=== PATIENT | male | born 1965 | race Caucasian/White ===

== ENCOUNTER 2022-12-31 14:58 | Inpatient (IN) ==
[2022-12-31 15:46] LABS: Basophils # (auto) 0.03 K/uL (0.00-0.20); Basophils % (auto) 0.3 %; Eosinophils # (auto) 0.04 K/uL (0.00-0.50); Eosinophils % (auto) 0.4 %; Hematocrit (blood only) 46.6 % (42.0-52.0); Immature Granulocytes # (auto) 0.04 K/uL (0.01-0.20); Immature Granulocytes % (auto) 0.4 %; Lymphocytes # (auto) 1.88 K/uL (1.20-3.40); Mean Corpuscular Hemoglobin 31.3 pg (25.0-34.0); Mean Corpuscular Hgb Conc 34.3 g/dL (32.0-36.0); Monocytes # (auto) 1.29 K/uL (0.11-0.59); Monocytes % (auto) 13.1 %; Neutrophils # (auto) 6.59 K/uL (1.40-6.50); Neutrophils % (auto) 66.8 %; Platelet Count 199 K/uL (130-400); RDW Coefficient of Variation 12.9 % (11.5-14.5); RDW Standard Deviation 43.5 fL (36.4-46.3); Red Blood Count 5.12 M/uL (4.70-6.10); White Blood Count 9.87 K/ul (4.8-10.8)
--- NOTE | 2022-12-31 15:46 | XRay Report ---
XR chest 1V not portable CLINICAL HISTORY: Chest pain, nonspecific TECHNIQUE: Single frontal radiograph of the chest was obtained. Comparison: None available at the time of this dictation. FINDINGS: No lines and tubes are seen. The cardiomediastinal silhouette is normal. Lungs are underinflated but clear. No evidence of pleural effusion or pneumothorax. IMPRESSION: No acute chest disease. ACT 112: Negative or not required by law. Electronically signed by: Robin Olsen M.D. 12/31/2022 3:45 PM
[2022-12-31 16:06] LABS: Albumin Globulin Ratio 1.3 (0.9-2); Albumin Level 4.3 gm/dl (3.4-5.0); BUN Creatinine Ratio 16.7 (10-20); Bilirubin,Total 0.9 mg/dl (0.2-1.0); Calcium 9.9 mg/dl (8.6-10.3); Creatinine Clr Calc Pharmacy 138.4 ml/min; Est GFR (Non-African American) 95.8 ml/min; Globulin 3.3 gm/dl (2.5-4.0); Potassium 4.1 mmol/L (3.5-5.1); Total Protein 7.6 gm/dl (6.0-8.3)
[2022-12-31 16:12] LABS: Troponin I High Sensitivity 5.2 pg/ml (0-20)
[2022-12-31 16:18] LABS: Partial Thromboplastin Time 28.7 Seconds (21.0-31.0); Prothrombin Time 11.4 Seconds (9.0-12.0)
--- NOTE | 2022-12-31 19:28 | Emergency Department Note ---
Impression & Plan Multiple pulmonary emboli, Back pain, Fall, Hemoptysis ED Provider Note ED Provider Note NAME: TOM SIMS AGE:57 SEX: Male : 1965 ARRIVES VIA: private vehicle INFORMANT: Patient ED PROVIDER(s): Margy Anne DO CHIEF COMPLAINT: back pain, fall 2 days ago HPI: This is a 57-year-old male presents emergency department due to concern for persistent back pain from a fall 2 days ago. Patient states he tripped over his dog falling forward into the wall and catching himself on the couch. He states later that evening he began feeling stiff and sore. He states yesterday he had pain all day in the left upper back that occasionally radiates forward into the chest. He states this persisted into today. He states his pain is worse with movement, coughing, and deep breathing. He states this morning he had an episode of hemoptysis. He did not notice any other changes or bleeding from any other source. He states throughout the day then he had a total of 4 episodes of hemoptysis. No use of antiplatelet or anticoagulation therapy. No recent fevers, chills, or URI symptoms. No prior history of hemoptysis. PAST MEDICAL HISTORY:See Below PAST SURGICAL HISTORY:See Below FAMILY HISTORY:See Below SOCIAL HISTORY:See Below HOME MEDICATIONS:See Below ALLERGIES:See Below VITALS:See Below PHYSICAL EXAMINATION: GENERAL: alert, well appearing, well nourished, no distress, non-toxic EYE EXAM: normal conjunctiva, PERRL and EOM's grossly intact OROPHARYNX: no exudate, no erythema, lips, buccal mucosa, and tongue normal and mucous membranes are moist NECK: supple, no nuchal rigidity, no adenopathy, non-tender LUNGS: Clear to auscultation. Normal chest wall mechanics, no w/r/r HEART: no murmurs, S1 normal and S2 normal ABDOMEN: abdomen soft, non-tender, normo-active bowel sounds, no masses, no rebound or guarding. BACK: Back is symmetrical on inspection and there is no deformity, no midline tenderness, no CVA tenderness. Pain with palpation over left lateral mid thoracic spine. SKIN: no rashes, petechiae, orbruising UPPER EXTREMITIES: upper extremities are grossly normal. FROM, nml pulses b/l. LOWER EXTREMITIES: No pitting edema. FROM, nml pulses b/l. Well-healed vertical midline incisions over bilateral knees consistent with prior surgery. NEURO EXAM: Normal sensorium, cranial nerves II-XII grossly intact, normal speech, no facial droop,nogross weakness of arms, no gross weakness of legs. Gross sensation intact. No ataxia. Vital Signs: reviewed and remarkable Differential Diagnosis: Pulmonary contusion, pneumonia, PE, rib fracture, chest wall contusion, pericardial effusion, bronchitis, epistaxis, musculoskeletal strain/sprain, as well as others were considered MEDICAL DECISION MAKING: This is a 57-year-old male presents emergency department due to concern for persistent left-sided back pain following a fall 2 days ago. Patient was afebrile and vital signs stable. Patient was seen initially in the triage waiting room area as he presented on the day of high volume and acuity. Labs were drawn and sent, IV established, EKG and chest x-ray performed and interpr eted by me. Patient taken for additional CT imaging following my evaluation of the triage waiting room area. Patient was eventually placed in a regular room and was monitored on telemetry. CT showed multiple bilateral PEs, no evidence of RV strain. While patient was hemodynamically stable he was noted to be tachypneic and dyspneic with any movement although not overtly hypoxic. I discussed all results with patient and family at bedside. He states his mother did have prior DVTs and a filter was placed. No known family history of a clotting disorder. He states he himself has never had DVT/PE. Patient started on heparin drip until additional evaluation and discussion with him could be had by the hospitalist team regarding other oral anticoagulation. Case discussed with on-call [facility] hospitalist for additional inpatient management. Consultation(s): 2044: Discussed with Dr. Castillo, [facility] hospitalist team. ER Treatment Provided: See below Diagnostics Interpreted By Me: -ECG: NSR at 73, nml axis, nml intervals, no acute ST/T wave changes -Cardiac Monitoring: An order was placed for continuous cardiac monitoring. The monitor shows a rate of 68 with normal sinus rhythm. -Laboratory studies: As stated above and show below. -Imaging studies: X-ray Chest: A single view study of the chest was reviewed and was negative for cardiomegaly, focal infiltrate, effusion, pulmonary edema, or wide mediastinum. Triage Nursing Note Reviewed Prior/Outside Records Reviewed -prior DC summary reviewed Critical Care: Critical care of 44 min performed to assess and manage high likelihood of life- threatening multiple bilateral PEs, involving labs and imaging performed with assessment to evaluate multiple bilateral PEs diagnosis with frequent reassessment. This time includes bedside time, treatment discussions with patient/family/consultants, documentation time and excludes procedure time. Past Med/Surg History Medical History Chronic back pain Degenerative disc disease GERD (gastroesophageal reflux disease) Osteoarthritis Sleep apnea CPAP HS Surgical History History of arthroscopy B/L KNEES History of colonoscopy History of esophagogastroduodenoscopy (EGD) History of lumbar spinal fusion x2 History of repair of rotator cuff RT SHOULDER History of tonsillectomy History of total knee replacement bilat Nausea and vomiting after administration of anesthetic agent HX OF PONV [place] teeth extracted Family History Mother Pulmonary embolism 2012, unknown etiology Hypertension Uncle Diabetes Social History Smoking Status: Never smoker Second Hand Exposure: No; Do You Dip or Chew Tobacco: No; Hx Alcohol Use: Yes Alcohol type: beer, wine and hard liquor Hx Substance Use: No Preferred Language: Bengali Communication Ability: Effective Visual Impairment: No Limitations Copy Center Operator Required: No Beliefs That Will Affect Care: None marital status: Current Living Situation: Spouse Feels Safe at Home: Yes Assistive Devices: Glasses Allergies Allergies Allergy/AdvReac Type Severity Reaction Status Date / Time adhesive Allergy Intermediate Rash Verified 12/31/22 20:53 ibuprofen Allergy Intermediate HIVES Verified 12/31/22 20:53 Home Meds Home Medications Medication Instructions Recorded Confirmed gabapentin 800 mg tablet 800 mg PO BID 06/01/18 12/31/22 omeprazole 40 mg capsule,delayed 20 mg PO BID 06/01/18 12/31/22 release naproxen 250 mg tablet 250 mg PO BID PRN Pain 12/31/22 12/31/22 tramadol 50 mg tablet 50 mg PO BID PRN Pain 12/31/22 12/31/22 Results & Data (ED) Vital Signs Vital Signs - 24 hr 12/31/22 14:59 12/31/22 20:10 12/31/22 20:10 Temperature 37.2 C Temperature Source Temporal Artery Scan Pulse Rate 84 Pulse Rate [Apical] 75 Pulse Rate from SpO2 Sensor Pulse Rhythm [Apical] Regular Pulse Strength [Apical] Normal Respiratory Rate 18 21 Respiratory Effort / Characteristics Non-Labored Non-Labored Respiratory Depth Normal Normal Respiratory Pattern Regular Blood Pressure 186/93 H Blood Pressure [Left Arm] 159/94 H Blood Pressure Mean 124 Blood Pressure Mean [Left Arm] 115 Blood Pressure Position Sitting Pulse Oximetry 93 96 95 Oxygen Delivery Method Room Air Room Air Room Air Sepsis Recent Fever Within 48 Hours No Sepsis New/Unexplained Change in Mental Status No Sepsis Action Taken by Nursing No Action Required 12/31/22 20:11 12/31/22 20:10 12/31/22 20:11 Temperature Temperature Source Pulse Rate 75 74 Pulse Rate [Apical] Pulse Rate from SpO2 Sensor 75 Pulse Rhythm [Apical] Pulse Strength [Apical] Respiratory Rate 16 Respiratory Effort / Characteristics Respiratory Depth Respiratory Pattern Blood Pressure Blood Pressure [Left Arm] Blood Pressure Mean Blood Pressure Mean [Left Arm] Blood Pressure Position Pulse Oximetry 96 95 Oxygen Delivery Method Room Air Sepsis Recent Fever Within 48 Hours Sepsis New/Unexplained Change in Mental Status Sepsis Action Taken by Nursing 12/31/22 20:30 12/31/22 21:00 12/31/22 21:02 Temperature Temperature Source Pulse Rate 54 L 66 66 Pulse Rate [Apical] Pulse Rate from SpO2 Sensor 54 L 67 67 Pulse Rhythm [Apical] Pulse Strength [Apical] Respiratory Rate 19 29 H 19 Respiratory Effort / Characteristics Respiratory Depth Respiratory Pattern Blood Pressure 100/65 142/60 H 164/89 H Blood Pressure [Left Arm] Blood Pressure Mean 76 87 114 Blood Pressure Mean [Left Arm] Blood Pressure Position Pulse Oximetry 97 93 96 Oxygen Delivery Method Room Air Room Air Room Air Sepsis Recent Fever Within 48 Hours Sepsis New/Unexplained Change in Mental Status Sepsis Action Taken by Nursing Laboratory Data 12/31/22 15:22 12/31/22 15:22 Lab Results 12/31/22 12/31/22 12/31/22 Range/Units 15:22 15:22 15:22 WBC 9.87 (4.8-10.8) K/ul RBC 5.12 (4.70-6.10) M/uL Hgb 16.0 (14.0-18.0) g/dl Hct 46.6 (42.0-52.0) % MCV 91.0 (80.0-100.0) fL MCH 31.3 (25.0-34.0) pg MCHC 34.3 (32.0-36.0) g/dL RDW Std Deviation 43.5 (36.4-46.3) fL RDW Coeff of Waldemar 12.9 (11.5-14.5) % Plt Count 199 (130-400) K/uL MPV 9.0 L (9.4-12.4) fL Immature Gran % (Auto) 0.4 % Neut % (Auto) 66.8 % Lymph % (Auto) 19.0 % Sully % (Auto) 13.1 % Eos % (Auto) 0.4 % Baso % (Auto) 0.3 % Neut # (Auto) 6.59 H (1.40-6.50) K/uL Lymph # (Auto) 1.88 (1.20-3.40) K/uL Sully # (Auto) 1.29 H (0.11-0.59) K/uL Eos # (Auto) 0.04 (0.00-0.50) K/uL Baso # (Auto) 0.03 (0.00-0.20) K/uL Immature Gran # (Auto) 0.04 (0.01-0.20) K/uL PT 11.4 (9.0-12.0) Seconds INR 1.0 (0.9-1.1) APTT 28.7 (21.0-31.0) Seconds PTT Ratio 1.0 Sodium 137 (136-145) mmol/L Potassium 4.1 (3.5-5.1) mmol/L Chloride 100 (98-107) mmol/L Carbon Dioxide 30 (21-32) mmol/L Anion Gap 7 (3-11) BUN 15 (6-23) mg/dl Creatinine 0.90 (0.6-1.4) mg/dl Est Cr Clr Drug Dosing 138.4 ml/min Est GFR ( Amer) 111.0 ml/min Est GFR (Non-Af Amer) 95.8 ml/min BUN/Creatinine Ratio 16.7 (10-20) Glucose 129 H (70-99(Fasting)) mg/dl Calcium 9.9 (8.6-10.3) mg/dl Total Bilirubin 0.9 (0.2-1.0) mg/dl AST 16 (13-39) U/L ALT 19 (7-52) U/L Alkaline Phosphatase 82 (34-104) U/L Troponin I High Sens 5.2 (0-20) pg/ml Total Protein 7.6 (6.0-8.3) gm/dl Albumin 4.3 (3.4-5.0) gm/dl Globulin 3.3 (2.5-4.0) gm/dl Albumin/Globulin Ratio 1.3 (0.9-2) Administered Medications Acetaminophen (Acetaminophen 325 Mg Tab) 650 mg PO Q4H PRN PRN Reason: Pain or Fever Stop: 01/30/23 22:39 Last Admin: 01/01/23 00:20 Dose: 650 mg Documented By: ALDAIR Gabapentin (Gabapentin 800 Mg Tab) 800 mg PO BID [facility] Stop: 01/30/23 22:39 Last Admin: 01/01/23 00:18 Dose: 800 mg Documented By: ALDAIR Heparin Sodium/Dextrose (Heparin Sodium/Dextrose) 25,000 units in 500 mls @ 38 mls/hr IV .[id number] [facility]; Protocol Stop: 01/30/23 20:44 Last Admin: 12/31/22 22:01 Dose: 1,900 units/hr, 38 mls/hr Documented By: ALDAIR Co-signed By: JUAN Pantoprazole Sodium (Pantoprazole 40 Mg Tab) 40 mg PO BID [facility] Stop: 01/30/23 22:39 Last Admin: 01/01/23 00:18 Dose: 40 mg Documented By: ALDAIR Discontinued Medications Heparin Sodium (Porcine) (Heparin Sod (Porcine) 1000 Unit/Ml) 8,000 units IV NOW ONE Stop: 12/31/22 21:16 Last Admin: 12/31/22 22:01 Dose: 8,000 units Documented By: ALDAIR Co-signed By: JUAN Heparin Sodium/Dextrose (Heparin Iv Adult Wt-Based Standard With Bolus Protocol) 1 each IV NOW [facility]; Protocol Stop: 12/31/22 20:28 Last Admin: 12/31/22 21:58 Dose: 1 each Documented By: ALDAIR Ioversol (Ioversol 350 Mg 125ml Prefilled Syringe) 119 ml IV ONCE ONE Stop: 12/31/22 19:38 Last Admin: 12/31/22 19:37 Dose: 119 ml Documented By: VÍCTOR Imaging Data Radiologist's Impression: Chest X-Ray 12/31/22 15:06 XR chest 1V not portable CLINICAL HISTORY: Chest pain, nonspecific TECHNIQUE: Single frontal radiograph of the chest was obtained. Comparison: None available at the time of this dictation. FINDINGS: No lines and tubes are seen. The cardiomediastinal silhouette is normal. Lungs are underinflated but clear. No evidence of pleural effusion or pneumothorax. IMPRESSION: No acute chest disease. ACT 112: Negative or not required by law. Electronically signed by: Robin Olsen M.D. 12/31/2022 3:45 PM Chest CTA 12/31/22 19:20 CR Exam(s): CTA CHEST IV Amt: 119 ml optiray 350 EXAM: CT Angiography Chest With Intravenous Contrast CLINICAL HISTORY: Reason for exam: hemoptysis. TECHNIQUE: Axial computed tomographic angiography images of the chest with intravenous contrast. CTDI is 28.14 mGy and DLP is 936.95 mGy-cm. Automated exposure control was utilized for the study. A dose lowering technique was utilized adhering to the principles of ALARA. MIP reconstructed images were created and reviewed. COMPARISON: No relevant prior studies available. FINDINGS: There is no thoracic aortic aneurysm or dissection. There is no adenopathy by CT size criteria. There is adequate pulmonary artery opacification. Main pulmonary artery is mildly enlarged suggesting pulmonary arterial hypertension. There are acute lobar, segmental, and subsegmental pulmonary emboli bilaterally, involving all lung lobes. No saddle embolus is present. Heart is enlarged. There is no RV strain or pericardial effusion. Subpleural ground-glass opacities at the left lung base are compatible with pulmonary infarcts. There is a small left pleural effusion. There is subsegmental atelectasis at the right lung base and in the dependent lingula. Lungs appear otherwise clear. There is no pneumothorax. There is no acute fracture or dislocation. IMPRESSION: 1. Extensive acute bilateral lobar, segmental, and subsegmental emboli involving all lung lobes. Slightly greater clot burden on the left side. No saddle embolus. No RV strain. 2. Pulmonary infarcts left lung base with small left pleural effusion. Communications: Call Doctor Pulmonary Embolism Electronically signed by: Rodger Pelaez M.D. 12/31/22 20:[address] 12/31/22 19:20 Exam(s): CT T SPINE IV Amt: 119 ml optiray 350 EXAM: CT Thoracic Spine With Intravenous Contrast CLINICAL HISTORY: Reason for exam: mid T spine back/left paraspinal. TECHNIQUE: Axial computed tomography images of the thoracic spine with intravenous contrast. CTDI is 28.14 mGy and DLP is 936.95 mGy-cm. Automated exposure control was utilized for the study. A dose lowering technique was utilized adhering to the principles of ALARA. CONTRAST: Patient received 119 ml optiray 350 of IV contrast COMPARISON: No relevant prior studies available. FINDINGS: Vertebrae: Vertebral body height and alignment are maintained. No acute fracture or traumatic subluxation. Discs/spinal canal/neural foramina: Mild multilevel degenerative disc disease. No spinal canal stenosis. Soft tissues: Unremarkable. Lungs: Subsegmental atelectasis right lung base. Small left pleural effusion with left basilar airspace disease, atelectasis or pneumonia. IMPRESSION: 1. No acute osseous findings. 2. Small left pleural effusion with left basilar airspace disease, atelectasis or pneumonia. Electronically signed by: Rodger Pelaez M.D. 12/31/22 20:03 PM Discharge Plan Visit Data Chief Complaint: Back Injury/Pain Stated Complaint: TRIPPED,BACK PAIN, ED Provider: Margy Anne Discharge Problem: Multiple pulmonary emboli, Back pain, Fall, Hemoptysis Patient Disposition: Admitted As Inpatient Discharge Instructions Interventions: ED Discharge Assessment Last Done: 12/31/22 22:41
[2022-12-31] MEDS ORDERED: IOVERSOL 350 MG 125mL Prefilled Syringe IV ONE (19:37)
--- NOTE | 2022-12-31 20:04 | CT Scan Report ---
Exam(s): CT T SPINE IV Amt: 119 ml optiray 350 EXAM: CT Thoracic Spine With Intravenous Contrast CLINICAL HISTORY: Reason for exam: mid T spine back/left paraspinal. TECHNIQUE: Axial computed tomography images of the thoracic spine with intravenous contrast. CTDI is 28.14 mGy and DLP is 936.95 mGy-cm. Automated exposure control was utilized for the study. A dose lowering technique was utilized adhering to the principles of ALARA. CONTRAST: Patient received 119 ml optiray 350 of IV contrast COMPARISON: No relevant prior studies available. FINDINGS: Vertebrae: Vertebral body height and alignment are maintained. No acute fracture or traumatic subluxation. Discs/spinal canal/neural foramina: Mild multilevel degenerative disc disease. No spinal canal stenosis. Soft tissues: Unremarkable. Lungs: Subsegmental atelectasis right lung base. Small left pleural effusion with left basilar airspace disease, atelectasis or pneumonia. IMPRESSION: 1. No acute osseous findings. 2. Small left pleural effusion with left basilar airspace disease, atelectasis or pneumonia. Electronically signed by: Rodger Pelaez M.D. 12/31/22 20:03 PM
--- NOTE | 2022-12-31 20:09 | CT Scan Report ---
Exam(s): CTA CHEST IV Amt: 119 ml optiray 350 EXAM: CT Angiography Chest With Intravenous Contrast CLINICAL HISTORY: Reason for exam: hemoptysis. TECHNIQUE: Axial computed tomographic angiography images of the chest with intravenous contrast. CTDI is 28.14 mGy and DLP is 936.95 mGy-cm. Automated exposure control was utilized for the study. A dose lowering technique was utilized adhering to the principles of ALARA. MIP reconstructed images were created and reviewed. COMPARISON: No relevant prior studies available. FINDINGS: There is no thoracic aortic aneurysm or dissection. There is no adenopathy by CT size criteria. There is adequate pulmonary artery opacification. Main pulmonary artery is mildly enlarged suggesting pulmonary arterial hypertension. There are acute lobar, segmental, and subsegmental pulmonary emboli bilaterally, involving all lung lobes. No saddle embolus is present. Heart is enlarged. There is no RV strain or pericardial effusion. Subpleural ground-glass opacities at the left lung base are compatible with pulmonary infarcts. There is a small left pleural effusion. There is subsegmental atelectasis at the right lung base and in the dependent lingula. Lungs appear otherwise clear. There is no pneumothorax. There is no acute fracture or dislocation. IMPRESSION: 1. Extensive acute bilateral lobar, segmental, and subsegmental emboli involving all lung lobes. Slightly greater clot burden on the left side. No saddle embolus. No RV strain. 2. Pulmonary infarcts left lung base with small left pleural effusion. Communications: Call Doctor Pulmonary Embolism Electronically signed by: Rodger Pelaez M.D. 12/31/22 20:08 PM
[2022-12-31] MEDS ORDERED: Heparin IV Adult Wt-Based Standard WITH Bolus Protocol IV STA (20:27)
[2022-12-31] MEDS ORDERED: HEPARIN SOD (PORCINE) 1000 UNIT/ML IV ONE ×2 (20:42→21:15)
--- NOTE | 2022-12-31 21:09 | History & Physical Report ---
Date of Service December 31, 2022 Assessment & Plan (1) Pulmonary emboli: Plan: -Pt presenting with progressive exertional dyspnea, fatigue and acute hemoptysis -Chest CT- extensive acute b/l lobar, segmental and subsegmental emboli of all lung lobes, greater clot burden on L side. Noted pulmonary infarcts of L lung base -Likely provoked by recent sedentary nature though with known FMH of clotting disorder in mother, will order hypercoagulable panel -Heparin started in ER, will continue and defer choice of [place] [facility] anticoagulant to day team- discussed DOAC with patient as possible option -Monitor CBC, PT/INR (2) Chronic back pain: Plan: -Chronic, stable, no acute issues -Continue gabapentin -Holding chronic PRN home opioid medications for now given no pain (3) GERD (gastroesophageal reflux disease): Plan: -Continue omeprazole BID (4) Sleep apnea: Plan: -Continue BIPAP Hs Plan FENGI: Heart healthy Code status: Full DVT prophylaxis: Heparin Isolation: None Disposition: Medical/surgical with telemetry History of Present Illness Chief Complaint: Hemoptysis Primary Care Provider: Robert White MD Pt is 57 yo M with PMH [place] on BIPAP, chronic back pain, GERD presenting with hemoptysis. Pt states he's had 3 weeks of exertional dyspnea, fatigue and worsened sleep. States this has led him to be much more sedentary and he has spent much of the day sitting down. Earlier this morning, he did have a few episodes of hemoptysis which prompted him to go ER. Pt arrived to ER hemodynamically stable. Initial evaluation with unremarkable CBC, CMP, coagulation studies, troponin. CXR negative. Chest CT w/ extensive acute b/l lobar, segmental and subsegmental emboli involving all lung lobes without saddle embolus or RV strain, noted pulmonary infarcts of left lung base. ER interventions include heparin infusion. At present, pt reports feeling well without acute complaint. He has not had further hemoptysis since ER arrival. Denies chest pain or dyspnea. He does have FMH of some clotting disorder in his mother. Allergies Allergy/AdvReac Type Severity Reaction Status Date / Time adhesive Allergy Intermediate Rash Verified 12/31/22 20:53 ibuprofen Allergy Intermediate HIVES Verified 12/31/22 20:53 Home Medications Medication Instructions Recorded Confirmed Type gabapentin 800 mg tablet 800 mg PO BID 06/01/18 12/31/22 History omeprazole 40 mg capsule,delayed 20 mg PO BID 06/01/18 12/31/22 History release naproxen 250 mg tablet 250 mg PO BID PRN Pain 12/31/22 12/31/22 History tramadol 50 mg tablet 50 mg PO BID PRN Pain 12/31/22 12/31/22 History Past Med/Surg History Medical History Chronic back pain Degenerative disc disease GERD (gastroesophageal reflux disease) Osteoarthritis Sleep apnea CPAP HS Surgical History History of arthroscopy B/L KNEES History of colonoscopy History of esophagogastroduodenoscopy (EGD) History of lumbar spinal fusion x2 History of repair of rotator cuff RT SHOULDER History of tonsillectomy History of total knee replacement bilat Nausea and vomiting after administration of anesthetic agent HX OF PONV [place] teeth extracted Family History Mother Pulmonary embolism 2012, unknown etiology Hypertension Uncle Diabetes Social History Smoking Status: Never smoker Second Hand Exposure: No; Do You Dip or Chew Tobacco: No; Hx Alcohol Use: Yes Alcohol type: beer, wine and hard liquor Hx Substance Use: No Preferred Language: Bahraini Communication Ability: Effective Visual Impairment: No 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 Beliefs That Will Affect Care: None marital status: Current Living Situation: Spouse Feels Safe at Home: Yes Assistive Devices: Glasses Review of Systems Review of Systems: Per HPI Physical Exam Physical Exam: General: well-appearing, no acute distress HEENT: PERRL, EOMI, conjunctivae clear without injection, anicteric sclerae, moist mucous membranes, clear oropharynx without exudate or erythema Neck: supple, trachea midline, no thyromegaly, no JVD, no cervical lymphad enopathy CV: RRR, normal S1 and S2, no murmurs Resp: CTAB, no increased work of breathing, no crackles or wheezes Abd: Soft, nontender, nondistended, no guarding or rebound, no hepatosplenomegaly MSK: Normal bulk of all four extremities Neuro: AOx3, no focal motor or sensory deficits Skin: no rashes or lesions, warm and dry Ext: no LE peripheral edema or erythema, capillary refill <2s in all four extremities, 2+ LE peripheral pulses b/l Results & Data Results & Data Vital Signs (Past 12 Hours) Vital Signs Temp Pulse Pulse Resp BP BP Pulse Ox 12/31/22 20:10 75 12/31/22 20:11 96 12/31/22 20:10 75 21 159/94 H 95 12/31/22 20:10 96 12/31/22 14:59 37.2 C 84 18 186/93 H 93 O2 Del Method 12/31/22 20:10 12/31/22 20:11 Room Air 12/31/22 20:10 Room Air 12/31/22 20:10 Room Air 12/31/22 14:59 Room Air Laboratory Results Laboratory Results WBC 9.87 K/ul (4.8-10.8) 12/31/22 15:22 RBC 5.12 M/uL (4.70-6.10) 12/31/22 15:22 Hgb 16.0 g/dl (14.0-18.0) 12/31/22 15:22 Hct 46.6 % (42.0-52.0) 12/31/22 15:22 MCV 91.0 fL (80.0-100.0) 12/31/22 15:22 MCH 31.3 pg (25.0-34.0) 12/31/22 15:22 MCHC 34.3 g/dL (32.0-36.0) 12/31/22 15:22 RDW Std Deviation 43.5 fL (36.4-46.3) 12/31/22 15:22 RDW Coeff of Waldemar 12.9 % (11.5-14.5) 12/31/22 15:22 Plt Count 199 K/uL (130-400) 12/31/22 15:22 MPV 9.0 fL (9.4-12.4) L 12/31/22 15:22 Immature Gran % (Auto) 0.4 % 12/31/22 15:22 Neut % (Auto) 66.8 % 12/31/22 15:22 Lymph % (Auto) 19.0 % 12/31/22 15:22 Hubbard % (Auto) 13.1 % 12/31/22 15:22 Eos % (Auto) 0.4 % 12/31/22 15:22 Baso % (Auto) 0.3 % 12/31/22 15:22 Neut # (Auto) 6.59 K/uL (1.40-6.50) H 12/31/22 15:22 Lymph # (Auto) 1.88 K/uL (1.20-3.40) 12/31/22 15:22 Hubbard # (Auto) 1.29 K/uL (0.11-0.59) H 12/31/22 15:22 Eos # (Auto) 0.04 K/uL (0.00-0.50) 12/31/22 15:22 Baso # (Auto) 0.03 K/uL (0.00-0.20) 12/31/22 15:22 Immature Gran # (Auto) 0.04 K/uL (0.01-0.20) 12/31/22 15: PT 11.4 Seconds (9.0-12.0) 12/31/22 15:22 INR 1.0 (0.9-1.1) 12/31/22 15:22 APTT 28.7 Seconds (21.0-31.0) 12/31/22 15: PTT Ratio 1.0 12/31/22 15:22 Sodium 137 mmol/L (136-145) 12/31/22 15:22 Potassium 4.1 mmol/L (3.5-5.1) 12/31/22 15:22 Chloride 100 mmol/L (98-107) 12/31/22 15:22 Carbon Dioxide 30 mmol/L (21-32) 12/31/22 15:22 Anion Gap 7 (3-11) 12/31/22 15:22 BUN 15 mg/dl (6-23) 12/31/22 15:22 Creatinine 0.90 mg/dl (0.6-1.4) 12/31/22 15:22 Est Cr Clr Drug Dosing 138.4 ml/min 12/31/22 15:22 Est GFR ( Amer) 111.0 ml/min 12/31/22 15:22 Est GFR (Non-Af Amer) 95.8 ml/min 12/31/22 15:22 BUN/Creatinine Ratio 16.7 (10-20) 12/31/22 15:22 Glucose 129 mg/dl (70-99(Fasting)) H 12/31/22 15:22 Calcium 9.9 mg/dl (8.6-10.3) 12/31/22 15:22 Total Bilirubin 0.9 mg/dl (0.2-1.0) 12/31/22 15:22 AST 16 U/L (13-39) 12/31/22 15:22 ALT 19 U/L (7-52) 12/31/22 15:22 Alkaline Phosphatase 82 U/L (34-104) 12/31/22 15:22 Troponin I High Sens 5.2 pg/ml (0-20) 12/31/22 15:22 Total Protein 7.6 gm/dl (6.0-8.3) 12/31/22 15:22 Albumin 4.3 gm/dl (3.4-5.0) 12/31/22 15:22 Globulin 3.3 gm/dl (2.5-4.0) 12/31/22 15:22 Albumin/Globulin Ratio 1.3 (0.9-2) 12/31/22 15:22 SARS-CoV-2 (PCR) NEGATIVE (Negative) 12/31/22 22:32 Influenza Type A (PCR) Negative (Neg) 12/31/22 22:32 Influenza Type B (PCR) Negative (Neg) 12/31/22 22:32 RSV (RT-PCR) Negative (Neg) 12/31/22 22:32 Impressions Chest X-Ray 12/31/22 15:06 XR chest 1V not portable CLINICAL HISTORY: Chest pain, nonspecific TECHNIQUE: Single frontal radiograph of the chest was obtained. Comparison: None available at the time of this dictation. FINDINGS: No lines and tubes are seen. The cardiomediastinal silhouette is normal. Lungs are underinflated but clear. No evidence of pleural effusion or pneumothorax. IMPRESSION: No acute chest disease. ACT 112: Negative or not required by law. Electronically signed by: Robin Olsen M.D. 12/31/2022 3:45 PM Chest CTA 12/31/22 19:20 CR Exam(s): CTA CHEST IV Amt: 119 ml optiray 350 EXAM: CT Angiography Chest With Intravenous Contrast CLINICAL HISTORY: Reason for exam: hemoptysis. TECHNIQUE: Axial computed tomographic angiography images of the chest with intravenous contrast. CTDI is 28.14 mGy and DLP is 936.95 mGy-cm. Automated exposure control was utilized for the study. A dose lowering technique was utilized adhering to the principles of ALARA. MIP reconstructed images were created and reviewed. COMPARISON: No relevant prior studies available. FINDINGS: There is no thoracic aortic aneurysm or dissection. There is no adenopathy by CT size criteria. There is adequate pulmonary artery opacification. Main pulmonary artery is mildly enlarged suggesting pulmonary arterial hypertension. There are acute lobar, segmental, and subsegmental pulmonary emboli bilaterally, involving all lung lobes. No saddle embolus is present. Heart is enlarged. There is no RV strain or pericardial effusion. Subpleural ground-glass opacities at the left lung base are compatible with pulmonary infarcts. There is a small left pleural effusion. There is subsegmental atelectasis at the right lung base and in the dependent lingula. Lungs appear otherwise clear. There is no pneumothorax. There is no acute fracture or dislocation. IMPRESSION: 1. Extensive acute bilateral lobar, segmental, and subsegmental emboli involving all lung lobes. Slightly greater clot burden on the left side. No saddle embolus. No RV strain. 2. Pulmonary infarcts left lung base with small left pleural effusion. Communications: Call Doctor Pulmonary Embolism Electronically signed by: Rodger Pelaez M.D. 12/31/22 20:[address] 12/31/22 19:20 Exam(s): CT T SPINE IV Amt: 119 ml optiray 350 EXAM: CT Thoracic Spine With Intravenous Contrast CLINICAL HISTORY: Reason for exam: mid T spine back/left paraspinal. TECHNIQUE: Axial computed tomography images of the thoracic spine with intravenous contrast. CTDI is 28.14 mGy and DLP is 936.95 mGy-cm. Automated exposure control was utilized for the study. A dose lowering technique was utilized adhering to the principles of ALARA. CONTRAST: Patient received 119 ml optiray 350 of IV contrast COMPARISON: No relevant prior studies available. FINDINGS: Vertebrae: Vertebral body height and alignment are maintained. No acute fracture or traumatic subluxation. Discs/spinal canal/neural foramina: Mild multilevel degenerative disc disease. No spinal canal stenosis. Soft tissues: Unremarkable. Lungs: Subsegmental atelectasis right lung base. Small left pleural effusion with left basilar airspace disease, atelectasis or pneumonia. IMPRESSION: 1. No acute osseous findings. 2. Small left pleural effusion with left basilar airspace disease, atelectasis or pneumonia. Electronically signed by: Rodger Pelaez M.D. 12/31/22 20:03 PM ECG Additional Comments: Per my interpretation EKG reveals NSR at 73, DP=612, QRS=86, HEo=589, no acute ischemic changes. No right heart strain pattern -Geovanna Castillo D.O. Supervising Physician Co-Signing Physician Notes Patient seen and examined, chart reviewed, case discussed with Dr. Vazquez and I agree with the assessment and plan as documented above. In brief, patient is a 57yo male presenting with intermittent episodes of SOB ongoing for the last several months. Also with increased fatigue and more sedentary. As above, found with extensive bilateral PEs. Patient with history of superficial thrombophlebitis but no personal history of prior VTE. He does report that his mother has had clots due to a "problem with clotting genes" and currently has an IVC filter in place - uncertain specific hypercoag deficiency. No recent trauma. He had a colonocopy on 10/31/20 with poor bowel prep - recommended repeat in 6 months due to poor prep. No record of repeat study On exam he is afebrile, HD stable, on room air HEENT - NC/AT, PERRL, MMM, neck supple Heart - +S1/S2, regular, no m/r/g Lungs - CTA anteriorly, no rales/rhonchi/wheezes Abd - +BS, soft, NT/ND Ext- warm, well perfused, varicosities present on bilateral LE - no tenderness, no edema Labs and images reviewed Assessment/Plan 57yo male with extensive acute bilateral lobar, segmental and subsegmental emboli with slightly greater clot burden on the left side. No saddle embolus. No RV strain. Pulmonary infarcts in the left with small pleural effusion. Patient with normal, stable vital signs. Adequate oxygenation on room air with no respiratory distress. Pain is well controlled. PESI score=65, very low risk, shock index normal Family history of some hypercoagulable state - details unknown -Admit to PCU -Continue Heparin gtt -Hypercoagulable workup -Remainder of plan as above Resident Activity Tracking Resident Involvement: Resident Care Provided Care Provided: Adult Hospital Medicine
[2022-12-31] MEDS: HEPARIN SODIUM/DEXTROSE 25,000 UNITS/500 ML BAG IV SCH (22:01)
[2022-12-31] MEDS ORDERED: ONDANSETRON INJ 2 MG/ML 2 ML VIAL IV PRN (22:40)
[2022-12-31 23:35] LABS: Influenza A virus by PCR Negative (Neg); Influenza B virus by PCR Negative (Neg); RSV by PCR Negative (Neg); SARS CoV2 RNA(COVID-19) Ceph NEGATIVE (Negative)
--- NOTE | 2023-01-01 00:05 | Billing Data ---
Date of Service December 31, 2022 Coding Level of Care Code 28464 INT INP/OBS CARE
[2023-01-01] MEDS: GABAPENTIN 800 MG TAB PO SCH ×3 (00:18→20:04)
[2023-01-01] MEDS: PANTOprazole 40 MG TAB PO SCH ×3 (00:18→20:04)
[2023-01-01] MEDS: ACETAMINOPHEN 325 MG TAB PO PRN ×2 (00:20→19:34)
[2023-01-01 04:10] LABS: Hematocrit (blood only) 46.4 % (42.0-52.0); Hemoglobin 16.2 g/dl (14.0-18.0); Mean Corpuscular Hemoglobin 31.2 pg (25.0-34.0); Mean Corpuscular Hgb Conc 34.9 g/dL (32.0-36.0); Mean Corpuscular Volume 89.4 fL (80.0-100.0); Mean Platelet Volume 9.1 fL (9.4-12.4); Platelet Count 186 K/uL (130-400); RDW Coefficient of Variation 12.9 % (11.5-14.5); RDW Standard Deviation 42.5 fL (36.4-46.3); Red Blood Count 5.19 M/uL (4.70-6.10)
[2023-01-01 04:25] LABS: BUN Creatinine Ratio 14.7 (10-20); Calcium 9.7 mg/dl (8.6-10.3); Creatinine Clr Calc Pharmacy 131.2 ml/min; Est GFR (Non-African American) 89.8 ml/min; Potassium 4.1 mmol/L (3.5-5.1)
[2023-01-01 04:54] LABS: INR 1.1 (0.9-1.1); Prothrombin Time 12.3 Seconds (9.0-12.0)
[2023-01-01 05:09] LABS: Partial Thromboplastin Ratio 1.7
[2023-01-01 05:15] LABS: Partial Thromboplastin Time 48.4 Seconds (21.0-31.0)
--- NOTE | 2023-01-01 07:56 | Hospitalist Progress Note ---
Date of Service January 01, 2023 Assessment & Plan (1) Pulmonary emboli: (2) Morbid obesity: (3) Chronic back pain: (4) GERD (gastroesophageal reflux disease): (5) Sleep apnea: Plan Patient is a 57 yo M w/ a PMHx of morbid obesity, [place] on CPAP, back pain, GERD, s/p total right knee replacement who presented for with a 1 day history of hemoptysis and 3 day history of back pain. Associated symptoms include a 1-week history of cough (especially on deep inspiration) and tachypnea. Patient does not endorse chest pain, increased heart rate or palpitations. Also does not endorse any calf pain/tenderness or any prolonged immobilization such as from surgery, extended travel times, or other periods of forced inactivity. Patient states that his mother has a history of blood clots due to a coagulopathic disorder. Pulmonary embolism - CTA: Extensive acute bilateral lobar, segmental, and subsegmental emboli involving all lung lobes. Slightly greater clot burden on the left side. No saddle embolus. No RV strain. Pulmonary infarcts in left lung base with small left pleural effusion. - with family Hx of 1st-degree relative with Hx of blood clots and multiple clots, suspicion raised for hypercoagulopathy d/o - Heparin started in ER, will continue and defer choice of termite inspector anticoagulant to day team- put in Eliquis, 10 mg, BID, 7 days - Monitor CBC, PT/INR Morbid obesity BMI = 51.4 Chronic back pain - Thoracic spine CT: Vertebrae: Vertebral body height and alignment are maintained. No acute fracture or traumatic subluxation. Discs/spinal canal/neural foramina: Mild multilevel degenerative disc disease. No spinal canal stenosis - naproxen, 375 mg, PO, BID, PRN - continue gabapentin, 800 mg, PO, BID GERD - 20 mg pantoprazole, PO, BID [place] on CPAP - CPAP ordered for the patient for sleep HsFENGI: Heart healthy Code status: Full DVT prophylaxis: Heparin Isolation: None Disposition: Medical/surgical with telemetry Admission and Anticipated Discharge Date Admission Date: December 31, 2022 Supervising Physician Co-Signing Physician Notes I personally examined the patient and verified lieberman points of history and exam, discussed case, and agree with decision making and plan documented by Dr. Kerr. Patient with reported left sided back pain and hemoptysis on admission for extensive pulmonary emboli. Patient denies provoking factor, does endorse sedentary lifestyle, personal history of blood clots (leg? unclear superficial/deep VT), and family histotry (mother) of coagulopathy. On heparin drip, hypercoagulopathy panel pending, will transition to DOAC. Obese male, appears comfortable, decreased breath sounds bilaterally, no rhonchi/wheezing, regular rate and rhythm, no acute distress. Subjective Patient hurt his back on Friday when playing with dog and came to ED this morning after coughing up blood on 12/31/22. Patient reiterated that he came ED for back pain, though, thought maybe he'd punctured his lung. Patient denied chest pain at rest, chest pain w/ inspiration, palpitations. Patient did endorse 1 week Hx of coughing upon deep inspiration. Patient has been SOB since Aug, 2022, while doing normal activities: mowing grass, daily walks. Was feeling tired during this time and wanting to sleep. Patient has previous Dx of neuropathy, with Sx of leg pain. 15-20 yrs ago pt had blood clots in superficial veins of lower legs--they were red, painful, hot, swollen at time. Has experienced no similar Sx since. Family Hx of cancer for grandmother, mom's side. Mom has a clotting d/o but patient uncertain of exact Dx. Patient thinks he had last colonoscopy 2-3 yrs ago. Patient is a never smoker. Review of Systems Constitutional: + fever and + fatigue Respiratory: + cough (cough upon deep inspiration) and + hemoptysis Cardiovascular: + dyspnea on exertion; no chest pain and no calf pain Musculoskeletal: + back pain Neurologic: no tingling and no numbness Physical Exam Constitutional: + morbidly obese Respiratory: normal respiratory effort, lungs clear to auscultation Cardiovascular: RRR, no murmur, no edema Extremities: no calf tenderness and no pedal edema Gastrointestinal (Abdomen): normal bowel sounds, soft, nontender, no hepatosplenomegaly Musculoskeletal: Extremities: extremities normal to inspection Psychiatric: A+Ox3, euthymic affect Results & Data Results & Data Vital Signs (Past 12 Hours) Vital Signs Pulse Pulse Resp BP BP Pulse Ox Pulse Ox 01/01/23 07:20 64 01/01/23 06:00 60 21 139/89 92 01/01/23 05:30 58 L 16 139/89 92 01/01/23 05:00 57 L 18 130/87 92 01/01/23 04:30 57 L 20 94 01/01/23 04:00 96 01/01/23 03:30 55 L 21 93 01/01/23 03:00 59 L 19 124/88 94 01/01/23 02:30 59 L 19 93 01/01/23 02:00 58 L 19 116/82 92 12/31/22 23:26 66 01/01/23 01:31 62 19 111/78 94 01/01/23 01:30 65 21 92 01/01/23 01:00 62 20 108/69 94 01/01/23 00:30 65 22 122/73 95 01/01/23 00:00 65 23 148/74 H 97 12/31/22 23:30 67 24 145/82 H 93 12/31/22 23:00 64 23 148/82 H 93 12/31/22 22:30 65 23 149/81 H 95 01/01/23 00:00 12/31/22 23:00 96 12/31/22 23:00 96 12/31/22 22:00 69 19 160/90 H 96 12/31/22 21:30 65 27 H 164/89 H 95 12/31/22 21:02 66 19 164/89 H 96 12/31/22 21:00 66 29 H 142/60 H 93 12/31/22 20:30 54 L 19 100/65 97 12/31/22 20:11 74 16 95 12/31/22 22:00 12/31/22 20:10 75 12/31/22 20:11 96 12/31/22 20:10 75 21 159/94 H 95 12/31/22 20:10 96 O2 Del Method O2 Del Method 01/01/23 07:20 01/01/23 06:00 Room Air 01/01/23 05:30 Room Air 01/01/23 05:00 Room Air 01/01/23 04:30 Room Air 01/01/23 04:00 Room Air 01/01/23 03:30 Room Air 01/01/23 03:00 01/01/23 02:30 01/01/23 02:00 12/31/22 23:26 01/01/23 01:31 Room Air 01/01/23 01:30 Room Air 01/01/23 01:00 Room Air 01/01/23 00:30 Room Air 01/01/23 00:00 Room Air 12/31/22 23:30 Room Air 12/31/22 23:00 Room Air 12/31/22 22:30 Room Air 01/01/23 00:00 Room Air 12/31/22 23:00 Room Air 12/31/22 23:00 Room Air 12/31/22 22:00 Room Air 12/31/22 21:30 Room Air 12/31/22 21:02 Room Air 12/31/22 21:00 Room Air 12/31/22 20:30 Room Air 12/31/22 20:11 12/31/22 22:00 Room Air 12/31/22 20:10 12/31/22 20:11 Room Air 12/31/22 20:10 Room Air 12/31/22 20:10 Room Air
[2023-01-01 10:59] LABS: Partial Thromboplastin Ratio 1.5
[2023-01-01 11:03] LABS: Partial Thromboplastin Time 41.3 Seconds (21.0-31.0)
[2023-01-01] MEDS: HEPARIN SODIUM/DEXTROSE 25,000 UNITS/500 ML BAG IV SCH (11:32)
--- NOTE | 2023-01-01 12:28 | XCELERA ---
[id number] [id number]
--- NOTE | 2023-01-01 16:05 | Electrocardiogram Report ---
Test Reason : Blood Pressure : / mmHG Vent. Rate : 073 BPM Atrial Rate : 073 BPM P-R Int : 158 ms QRS Dur : 086 ms QT Int : 412 ms P-R-T Axes : 043 -19 051 degrees QTc Int : 453 ms Normal sinus rhythm Normal ECG When compared with ECG of 04-JUN-2018 12:20, No significant change was found Confirmed by Aleksandr Abbasi ([id number]) on 01/01/2023 4:04:31 PM Referred By: Confirmed By:Gabe Abbasi
[2023-01-01] MEDS ORDERED: NAPROXEN 375 MG TAB PO PRN (17:08)
[2023-01-02] MEDS: HEPARIN SODIUM/DEXTROSE 25,000 UNITS/500 ML BAG IV SCH ×2 (00:34→13:07)
[2023-01-02 07:10] LABS: Basophils # (auto) 0.04 K/uL (0.00-0.20); Basophils % (auto) 0.4 %; Eosinophils # (auto) 0.08 K/uL (0.00-0.50); Eosinophils % (auto) 0.9 %; Hematocrit (blood only) 43.3 % (42.0-52.0); Immature Granulocytes # (auto) 0.04 K/uL (0.01-0.20); Immature Granulocytes % (auto) 0.4 %; Lymphocytes % (auto) 28.1 %; Mean Corpuscular Hemoglobin 30.7 pg (25.0-34.0); Mean Corpuscular Hgb Conc 34.6 g/dL (32.0-36.0); Mean Corpuscular Volume 88.5 fL (80.0-100.0); Mean Platelet Volume 9.5 fL (9.4-12.4); Monocytes # (auto) 1.16 K/uL (0.11-0.59); Neutrophils # (auto) 5.08 K/uL (1.40-6.50); Neutrophils % (auto) 57.2 %; Platelet Count 213 K/uL (130-400); RDW Standard Deviation 42.1 fL (36.4-46.3); Red Blood Count 4.89 M/uL (4.70-6.10)
[2023-01-02 07:19] LABS: Calcium 9.3 mg/dl (8.6-10.3); Creatinine Clr Calc Pharmacy 139.3 ml/min; Est GFR (Non-African American) 95.8 ml/min; Potassium 3.7 mmol/L (3.5-5.1)
[2023-01-02 07:45] LABS: Partial Thromboplastin Ratio 1.5
[2023-01-02 08:12] LABS: Partial Thromboplastin Time 43.2 Seconds (21.0-31.0)
[2023-01-02] MEDS: PANTOprazole 40 MG TAB PO SCH (09:46)
[2023-01-02] MEDS: GABAPENTIN 800 MG TAB PO SCH (09:46)
[2023-01-02] MEDS ORDERED: APIXABAN 5 MG TABLET PO STA (13:40)
[2023-01-02] MEDS ORDERED: HEPARIN INFUSION STOP ORDER ONE (14:00)
[2023-01-02 15:14] LABS: Lyme Ab IgG w/WB Rflx Negative (Negative); Lyme Ab IgM w/WB Rflx Negative (Negative)
[2023-01-02] MEDS: ACETAMINOPHEN 325 MG TAB PO PRN (16:27)
--- NOTE | 2023-01-02 17:04 | Hospitalist Progress Note ---
Date of Service January 02, 2023 Assessment & Plan (1) Pulmonary emboli: (2) Morbid obesity: (3) Chronic back pain: (4) GERD (gastroesophageal reflux disease): (5) Sleep apnea: Plan Patient is a 57 yo M w/ a PMHx of morbid obesity, [place] on CPAP, back pain, GERD, s/p total right knee replacement who presented for with a 1 day history of hemoptysis and 3 day history of back pain. Associated symptoms include a 1-week history of cough (especially on deep inspiration) and tachypnea. Patient does not endorse chest pain, increased heart rate or palpitations. Also does not endorse any calf pain/tenderness or any prolonged immobilization such as from surgery, extended travel times, or other periods of forced inactivity. Patient states that his mother has a history of blood clots due to a coagulopathic disorder. Pulmonary embolism - CTA: Extensive acute bilateral lobar, segmental, and subsegmental emboli involving all lung lobes. Slightly greater clot burden on the left side. No saddle embolus. No RV strain. Pulmonary infarcts in left lung base with small left pleural effusion. - with family Hx of 1st-degree relative with Hx of blood clots and multiple clots, suspicion raised for hypercoagulopathy d/o - Heparin started in ER, will continue and defer choice of alf anticoagulant to day team- put in Eliquis, 10 mg, BID, 7 days - Monitor CBC, PT/INR Morbid obesity BMI = 51.4 Chronic back pain - Thoracic spine CT: Vertebrae: Vertebral body height and alignment are maintained. No acute fracture or traumatic subluxation. Discs/spinal canal/neural foramina: Mild multilevel degenerative disc disease. No spinal canal stenosis - naproxen, 375 mg, PO, BID, PRN - continue gabapentin, 800 mg, PO, BID GERD - 20 mg pantoprazole, PO, BID [place] on CPAP - CPAP ordered for the patient for sleep HsFENGI: Heart healthy Code status: Full DVT prophylaxis: Heparin Isolation: None Disposition: Medical/surgical with telemetry Admission and Anticipated Discharge Date Admission Date: December 31, 2022 Subjective Patient hurt his back on Friday when playing with dog and came to ED this morning after coughing up blood on 12/31/22. Patient reiterated that he came ED for back pain, though, thought maybe he'd punctured his lung. Patient denied chest pain at rest, chest pain w/ inspiration, palpitations. Patient did endorse 1 week Hx of coughing upon deep inspiration. Patient has been SOB since Aug, 2022, while doing normal activities: mowing grass, daily walks. Was feeling tired during this time and wanting to sleep. Patient has previous Dx of neuropathy, with Sx of leg pain. 15-20 yrs ago pt had blood clots in superficial veins of lower legs--they were red, painful, hot, swollen at time. Has experienced no similar Sx since. Family Hx of cancer for grandmother, mom's side. Mom has a clotting d/o but patient uncertain of exact Dx. Patient thinks he had last colonoscopy 2-3 yrs ago. Patient is a never smoker. Review of Systems Review of Systems: Per HPI Constitutional: + fever and + fatigue Respiratory: + cough (cough upon deep inspiration) and + hemoptysis Cardiovascular: + dyspnea on exertion; no chest pain and no calf pain Musculoskeletal: + back pain Neurologic: no tingling and no numbness Physical Exam Constitutional: + morbidly obese Respiratory: normal respiratory effort, lungs clear to auscultation Cardiovascular: RRR, no murmur, no edema Extremities: no calf tenderness and no pedal edema Gastrointestinal (Abdomen): normal bowel sounds, soft, nontender, no hepatosplenomegaly Musculoskeletal: Extremities: extremities normal to inspection Psychiatric: A+Ox3, euthymic affect Results & Data Results & Data Vital Signs (Past 12 Hours) Vital Signs Temp Pulse Pulse Resp BP Pulse Ox O2 Del Method 01/02/23 16:38 Room Air 01/02/23 16:23 36.5 C 67 18 138/91 93 Room Air 01/02/23 15:41 67 01/02/23 08:41 36.7 C 57 L 18 136/85 92 Room Air 01/02/23 08:20 Room Air 01/02/23 07:17 58 L
--- NOTE | 2023-01-02 17:13 | Discharge Summary ---
Date of Service January 02, 2023 Admission HPI Per Admitting Provider Pt is 57 yo M with PMH [place] on BIPAP, chronic back pain, GERD presenting with hemoptysis. Pt states he's had 3 weeks of exertional dyspnea, fatigue and worsened sleep. States this has led him to be much more sedentary and he has spent much of the day sitting down. Earlier this morning, he did have a few episodes of hemoptysis which prompted him to go ER. Pt arrived to ER hemodynamically stable. Initial evaluation with unremarkable CBC, CMP, coagulation studies, troponin. CXR negative. Chest CT w/ extensive acute b/l lobar, segmental and subsegmental emboli involving all lung lobes without saddle embolus or RV strain, noted pulmonary infarcts of left lung base. ER interventions include heparin infusion. At present, pt reports feeling well without acute complaint. He has not had further hemoptysis since ER arrival. Denies chest pain or dyspnea. He does have FMH of some clotting disorder in his mother. Admission Exam Per Admitting Provider GENERAL: alert, well appearing, well nourished, no distress, non-toxic EYE EXAM: normal conjunctiva, PERRL and EOM's grossly intact OROPHARYNX: no exudate, no erythema, lips, buccal mucosa, and tongue normal and mucous membranes are moist NECK: supple, no nuchal rigidity, no adenopathy, non-tender LUNGS: Clear to auscultation. Normal chest wall mechanics, no w/r/r HEART: no murmurs, S1 normal and S2 normal ABDOMEN: abdomen soft, non-tender, normo-active bowel sounds, no masses, no rebound or guarding. BACK: Back is symmetrical on inspection and there is no deformity, no midline t enderness, no CVA tenderness. Pain with palpation over left lateral mid thoracic spine. SKIN: no rashes, petechiae, orbruising UPPER EXTREMITIES: upper extremities are grossly normal. FROM, nml pulses b/l. LOWER EXTREMITIES: No pitting edema. FROM, nml pulses b/l. Well-healed vertical midline incisions over bilateral knees consistent with prior surgery. NEURO EXAM: Normal sensorium, cranial nerves II-XII grossly intact, normal speech, no facial droop,nogross weakness of arms, no gross weakness of legs. Gross sensation intact. No ataxia. Principal Diagnosis Pulmonary Embolism Discharge Exam Constitutional well developed and + morbidly obese Respiratory normal respiratory effort, lungs clear to auscultation Cardiovascular RRR, no murmur, no edema Extremities: normal capillary refill; no calf tenderness Gastrointestinal (Abdomen) normal bowel sounds, soft, nontender, no hepatosplenomegaly Discharge Data Allergies Allergy/AdvReac Type Severity Reaction Status Date / Time adhesive Allergy Intermediate Rash Verified 12/31/22 20:53 ibuprofen Allergy Intermediate HIVES Verified 12/31/22 20:53 Consultations 12/31/22 20:51 ED Decision to Admit Stat Ordered Studies 12/31/22 19:20 CT angio chest PE protocol Stat CT thoracic spine w con Stat Hypercoagulopathy Panel Lyme Antibody Panel Hospital Course (1) Pulmonary emboli: (2) Chronic back pain: (3) Morbid obesity: (4) GERD (gastroesophageal reflux disease): (5) Sleep apnea: Plan Assessment & Plan (1) Pulmonary emboli: (2) Morbid obesity: (3) Chronic back pain: (4) GERD (gastroesophageal reflux disease): (5) Sleep apnea: Plan Patient is a 57 yo M w/ a PMHx of morbid obesity, [place] on CPAP, back pain, GERD, s/p total right knee replacement who presented for with a 1 day history of hemoptysis and 3 day history of back pain. Associated symptoms include a 1-week history of cough (especially on deep inspiration) and tachypnea. Patient does not endorse chest pain, increased heart rate or palpitations. Also does not endorse any calf pain/tenderness or any prolonged immobilization such as from surgery, extended travel times, or other periods of forced inactivity. Patient states that his mother has a history of blood clots due to a coagulopathic disorder. Pulmonary embolism - CTA:Extensive acute bilateral lobar, segmental, and subsegmental emboli involving all lung lobes. Slightly greater clot burden on the left side. No saddle embolus. No RV strain. Pulmonary infarcts in left lung base with small left pleural effusion. - with family Hx of 1st-degree relative with Hx of blood clots and multiple clots, suspicion raised for hypercoagulopathy d/o - Eliquis, 10 mg, BID, first 7 days (week 1) - Eliquis, 5 mg, BID, following 21 days (weeks 2-4) Chronic back pain - Thoracic spine CT: Vertebrae: Vertebral body height and alignment are maintained. No acute fracture or traumatic subluxation Discs/spinal canal/neural foramina: Mild multilevel degenerative disc disease. No spinal canal stenosis - 10 mg, cyclobenzaprine, PO, nightly, PRN, first 7 nights - use heating pad, lidocaine patches, 220 mg naproxen every other day, following 7 nights (second week) - continue gabapentin, 800 mg, PO, BID - Total Time Total Time Spent Total Time Spent (In Minutes): 20 minutes Discharge Plan Discharge Items Patient Disposition: Home - Self-Care Reason For Visit: PE Discharge Diagnosis: Pulmonary Embolism, Hemoptysis, Back pain Activity: Resume your previous activity Non-emergency contact: Primary Care Provider Call non-emergency contact if: you have any medication questions and your symptoms worsen Follow-up/Referrals: Robert White MD [Primary Care Provider] - Diet: Regular Addtl Attending Provider Instructions: You were admitted to the hospital for hemoptysis and multiple pulmonary embolisms. You were treated with Heparin, IV and will be continued on another anti-coagulation drug after discharge. A discharge summary will be sent to your primary care physician to ensure continuity of care. Please bring this discharge summary with you to your next office appointment so that your provider can review it at that time. Follow-up appointments: [ We have requested a follow-up appointment with Dr. Kerr within two weeks of discharge. Please call their office if you do not hear from them.] Keep all your follow-up appointments as already scheduled. If you cannot make an appointment, notify your provider. Medications: Your medication list has been reviewed and reconciled upon discharge to ensure accuracy and continuity of care. An updated list of all your medications is included with your hospital discharge paperwork. Please review this list closely, and make note of any changes. We sent a new medication called [Eliquis] to your pharmacy. Take [Eliquis] ([5]mg) [two tablets] [twice daily] [for first 5 days] We sent a new medication called [Eliquis] to your pharmacy. Take [Eliquis] ([5]mg) [one tablet] [twice a day] [for following 21 days]. We sent a new medication called [Cyclobenzaprine] to your pharmacy. Take [Cyclobenzaprine] ([10]mg) [one tablet] [at night] [for 7 days as needed for back pain. Take your medications as instructed; do not skip a dose of your medicines. Make sure all of your doctors know every medicine you are taking (including ldem-oln-wudnyzv medicines, vitamins, and supplements). Call your primary care provider before taking any new medicines (including ouxe-ket-icypsfs medicines, vitamins, and supplements), because some of these may interact with your current medications, or may make your symptoms worse. Tell your primary care provider if you cannot afford your medications. CONTACT YOUR PRIMARY CARE PROVIDER if you experience any of the following: [short of breath, chest pain, elevated heart rate, elevated respiratory rate] [_] Difficulty following your treatment plan, or difficulty taking medications CALL 911 OR GO TO THE EMERGENCY DEPARTMENT if you experience any of the following: Sudden, severe abdominal pain or nausea/vomiting Severe chest pain, or chest pain that radiates (moves) to your jaw or arm Sudden, severe shortness of breath or difficulty breathing Thank you for allowing us to participate in your care Pending Studies at Discharge: Yes Studies:: Hypercoagulation studies, Lyme antibody panels Stand-Alone Forms: My [facility]Box, Smoking Cessation Medications and DC Order Prescriptions: New Eliquis 5 mg tablet See Rx Instructions .ROUTE .COMPLEX 30 Days Qty: 70 0RF Rx Instructions: 2 x 5 mg (10 mg), BID, PO, 7 days 5 mg, BID, PO, 21 days cyclobenzaprine 10 mg tablet 10 mg PO HS PRN (Reason: muscle spasm) Qty: 7 0RF Continued omeprazole 40 mg Capsule,Delayed Release(Dr/Ec) 20 mg PO BID gabapentin 800 mg Tablet 800 mg PO BID naproxen 250 mg tablet 250 mg PO BID PRN (Reason: Pain) tramadol 50 mg tablet 50 mg PO BID PRN (Reason: Pain) Discharge Orders: Discharge Order (Routine); Ordered 01/02/23 Ordered By: Aleksandr Kerr Admission Data Admit Date/Time: 12/31/22 21:27 Attending Provider: Silvia Noel Admit Provider: Olga Vazquez Primary Care Provider: Robert White Other Providers: Catherine Castillo Other Interventions: Discharge Summary Assessment (RN) Last Done: 01/02/23 17:36 Supervising Physician Co-Signing Physician Notes I personally examined the patient and verified lieberman points of history and exam, discussed case, and agree with decision making and plan documented by Dr. Kerr. Patient transitioned to Eliis for treatment of pulmonary embolism, telephonic nurse case manager assisted with coupon for pharmacy. Patient with episode of fever and overall body aches and chills last night, ordered Lyme panel IgG/IgM which were negative. Awaiting coagulopathy work-up labs. Patient with a couple episodes of hemoptysis while on admission, endorsed small clots in sputum. Reviewed with patient's mother that she does have a genetic mutation, she is unsure which one, will report back when she determines her diagnosis in regards to coagulopathy. Patient will be scheduled for follow-up and TCM visit. Maricarmen reeves encouraged patient to continue efforts to increase physical activity to promote weight loss and conditioning.
[2023-01-02] MEDS ORDERED: APIXABAN 5 MG TABLET PO SCH ×4 (17:45→21:00)
[2023-01-02] MEDS ORDERED: CYCLOBENZAPRINE HCL 10 MG TAB PO SCH (17:45)
[2023-01-03] MEDS ORDERED: CYCLOBENZAPRINE HCL 10 MG TAB PO SCH (09:00)
[2023-01-05 07:31] LABS: Anti Cardiolipin Ab IgG <2.0 GPL-U/mL; Anti Cardiolipin Ab IgM <2.0 MPL-U/mL; B2 Glycoprotein IgG <2.0 U/mL (<20.0); B2 Glycoprotein IgM <2.0 U/mL (<20.0); Protein S Functional(Activity) 78 % normal (70-150)
== END 2023-01-02 18:53 | disposition home or self-care (01) | DRG 176 ==
LOC: ED 14:58 → EDINP 21:27 → SUATTDRO 21:27 → 2N 22:41